=== PATIENT | male | born 1960 | race Caucasian/White ===

== ENCOUNTER 2019-04-29 00:19 | Emergency (ER) | payer BC ==
[~2019-04-29] VITALS: Ht 175.3 cm; Wt 86.0 kg
[2019-04-29] MEDS ORDERED: NS 1,000 ML IV SCH ×2 (02:12→04:26)
[2019-04-29] MEDS ORDERED: ONDANSETRON 4MG/2ML VIAL (J2405) IV ONE (02:15)
[2019-04-29] MEDS ORDERED: fentaNYL 100 MCG/2 ML INJECTION (J3010) IV ONE (02:15)
[2019-04-29] MEDS ORDERED: KETAMINE HCL 200 MG/20 ML VIAL IV ONE ×2 (02:15→04:30)
[2019-04-29] MEDS: propofoL 200 MG/20 ML VIAL IV PRN ×8 (03:47→05:08)
[2019-04-29] MEDS: MORPHINE 4 MG/ML 1ML VIAL/SYRINGE (J2270) IV PRN ×2 (04:01→06:40)
[2019-04-29 05:45] LABS: BASO % 0.4 % (0.0-1.0); EOS % 0.2 % (0.0-3.0); HEMOGLOBIN 14.4 g/dl (13.5-17.5); LYMPH # 0.9 10^3/uL (1.5-4.5); LYMPH % 9.5 % (24.0-44.0); MEAN CORPUSCULAR HEMOGLOBIN 35.2 pg (27.0-33.0); MEAN CORPUSCULAR HGB CONC 35.1 g/dl (32.0-36.5); MEAN CORPUSCULAR VOLUME 100.2 fl (80.0-96.0); MONO # 0.5 10^3/uL (0.0-0.8); MONO % 5.3 % (0.0-5.0); NEUTROPHILS # 7.8 10^3/uL (1.8-7.7); NEUTROPHILS % 84.2 % (36.0-66.0); PLATELET COUNT, AUTOMATED 171 10^3/uL (150-450); RED BLOOD COUNT 4.09 10^6/uL (4.30-6.10); WHITE BLOOD COUNT 9.2 10^3/uL (4.0-10.0)
[2019-04-29 06:00] LABS: INR 0.93; PARTIAL THROMBOPLASTIN TIME 23.1 SECONDS (25.0-38.4); PROTHROMBIN TIME 12.2 SECONDS (11.8-14.0)
[2019-04-29 06:09] LABS: BLOOD UREA NITROGEN 6 MG/DL (7-18); CALCIUM LEVEL 7.6 MG/DL (8.5-10.1); CARBON DIOXIDE LEVEL 17 MEQ/L (21-32); CHLORIDE LEVEL 105 MEQ/L (98-107); CREATININE FOR GFR 0.79 MG/DL (0.70-1.30); GLOMERULAR FILTRATION RATE > 60.0 (>56); GLUCOSE, FASTING 96 MG/DL (70-100); POTASSIUM SERUM 4.5 MEQ/L (3.5-5.1); SODIUM LEVEL 134 MEQ/L (136-145)
[2019-04-29 06:48] VITALS: BP 145/75
--- NOTE | 2019-04-30 07:51 | REP ---
Portable left elbow two views: There is dislocation of the radial head and olecranon from the distal humerus. There is a small calcification lateral a small calcification medially, possibly a avulsions. Impression: Elbow dislocation. Electronically Signed by Benson Lambert MD 04/29/2019 07:36 A
--- NOTE | 2019-05-01 15:03 | REP ---
Left elbow three views: There is dislocation of the elbow with anterior displacement of the distal humeral condyles. There is a small calcification lateral small calcification medially, possibly a avulsions. I suspect there is an hemarthrosis. Electronically Signed by Benson Lambert MD 04/29/2019 07:38 A
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
== END 2019-04-29 06:50 | disposition short-term general hospital (02) ==
LOC: M ED 00:19
DX: S53.005A Unspecified dislocation of left radial head, initial encounter (principal); V93.39XA Fall on board unspecified watercraft, initial encounter; Y93.19 Activity, other involving water and watercraft; Y99.9 Unspecified external cause status; F10.220 Alcohol dependence with intoxication, uncomplicated; F17.210 Nicotine dependence, cigarettes, uncomplicated
CPT/HCPCS: 24605; 73070; 73080; 80048; 85025; 85610; 85730; 93041; 96361; 96374; 96375; 99156; 99285; G0480; J2270; J2405; J3010